=== PATIENT | male | born 1940 | race Caucasian/White ===

== ENCOUNTER → 2017-04-21 | Outpatient (CLI) | payer MEDICARE, OTHER ==
[~2017-04-21] MED LIST: ALAVERT10 M1 PO; ASCORBIC ACID500 M2 PO; ASPIRIN CHILDRE81 M1 PO; BENTYL20 M1 PO; BISOPROLOL 5MG T5 MG PO; BISOPROLOL FUMA10 MG PO; CIPRO 500MG TA500 MG PO; CLINORIL GENER150 MG PO; DIPHENHYDRAMINE25 M1 PO; DOXAZOSIN2 MG PO; EFFEXOR XR 75MG75 MG PO; EFFEXOR XR150 MG PO; FINASTERIDE5 MG PO; FISH OIL1000 MG PO; FLOMAX 0.4MG C0.4 MG PO; GABAPENTIN300 MG PO; Glucosamine500 MG PO; HYDROCODONE-APA1 TA1 PO; LEVOTHYROXIN0.112 M1 PO; LEVOTHYROXIN0.112 MG PO; LOSARTAN POTASS50 MG PO; METOLAZONE 2.52.5 MG PO; NEXIUM40 MG PO; NORCO1 TAB PO; OMEPRAZOLE40 MG PO; SIMVASTATIN40 MG PO; SIMVASTATIN80 MG PO; TYLENOL W/CODEI1 TA2 PO; VISTARIL25 M1 PO; VYTORIN 10 MG-41 TAB PO; ZETIA10 MG PO; ZOFRAN ODT4 MG PO
[2017-04-21 10:06] LABS: BUN 9 mg/dL (7-18)
[2017-04-21 10:08] LABS: GFR (ESTIMATED) 73 ML/MIN (>60)
== END ==
LOC: LAB 09:31
PROVIDERS: Internal Medicine Cardiovascular Disease
DX: I10 Essential (primary) hypertension (principal); I25.10 Atherosclerotic heart disease of native coronary artery without angina pectoris; E78.5 Hyperlipidemia, unspecified

== ENCOUNTER → 2017-05-06 | Outpatient (CLI) | payer MEDICARE, OTHER ==
[2017-05-06 14:02] LABS: BUN 7 mg/dL (7-18)
[2017-05-06 14:04] LABS: GFR (ESTIMATED) 65 ML/MIN (>60)
== END ==
LOC: LAB 13:34
PROVIDERS: Internal Medicine Cardiovascular Disease
DX: I25.10 Atherosclerotic heart disease of native coronary artery without angina pectoris (principal); R06.00 Dyspnea, unspecified; K21.9 Gastro-esophageal reflux disease without esophagitis; M54.5 Low back pain; G47.33 Obstructive sleep apnea (adult) (pediatric); R60.9 Edema, unspecified

== ENCOUNTER 2017-06-09 11:01 | Day surgery (SDC) | payer MEDICARE, OTHER ==
[~2017-06-09] VITALS: Ht 172.7 cm; Wt 104.3 kg
--- NOTE | 2017-06-09 13:06 | Operative Note ---
Upper GI Endoscopy Procedure date: 06/09/17 Date of : 40 Procedure:Upper GI Endoscopy Esophagogastroduodenoscopy with cold biopsies Indications: Mr. 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 This pathology was confirmed through [facility] pathologist. He underwent endoscopic mucosal resection by me on February 14, 2016 which was confirmed pathologically to be T1 lesion. The patient subsequently underwent radiofrequency ablation of the remaining Maloney's on May 01, 2016. He returns today for his 1 year surveillance endoscopy. He does have some reflux in the evenings which is mild. Performing Provider: Dipti Trejo MD Referring Provider: Francisco Schuler M.D. Sedation: MAC sedation Procedure: Prior to the procedure, a history and physical exam was performed, and patients medications and allergies were reviewed. The risks and benefits of the procedure and the sedation options and risks were discussed with the patient. All questions were answered and informed consent was obtained. The patient was brought to the procedure room. Patient identification and proposed procedure were verified by the physician and the nurse. The patient was placed in a left lateral decubitus position and the scope was passed under direct vision. Throughout the procedure, the patient's blood pressure, pulse, and oxygen saturations were monitored continuously. The endoscope was introduced through the mouth, and advanced to the second part of duodenum. The upper GI endoscopy was accomplished without difficulty. The patient tolerated the procedure well. Findings: The scope was passed directly into the upper esophagus and advanced to the third portion of the duodenum. The post bulbar duodenum and duodenal bulb were normal with normal mucosa and conniventes. The scope was withdrawn through a normal duodenal bulb and pylorus into the stomach. There was very mild linear reactive antritis. The remainder of the antrum, body and fundus of the stomach were grossly normal. Upon retroflexion there was a small 1-2 cm hiatal hernia. The scope was withdrawn into the esophagus. There was no evidence of reflux esophagitis or Maloney's. There was at least 1 short tongue of salmon-colored mucosa that was biopsied to rule out Maloney's/intestinal metaplasia. Narrowband imaging was utilized and did not show any evidence of dysplasia. The remainder of the esophageal mucosa was normal. Immediate complications: None EBL (ml): 0 Impression: 1. Normal post-EMR/radiofrequency ablation of prior short segment Maloney's with high-grade dysplasiasurveillance biopsies obtained to rule out any remaining intestinal metaplasia/Maloney's 2. Nonerosive gastroesophageal reflux disease with small 1-2 cm hiatal hernia Recommendations: I will follow-up the biopsies. If there is any evidence of intestinal metaplasia , I would continue annual or biannual surveillance based upon his former history of Maloney's with high-grade dysplasia. I would continue PPI therapy on a long- term daily maintenance basis. at [id number]
[2017-06-09 14:41] VITALS: BP 124/81
== END 2017-06-09 13:45 | disposition home or self-care (01) ==
LOC: SDC 11:01
PROVIDERS: Internal Medicine Gastroenterology
PROC: 0DJ08ZZ Inspection of Upper Intestinal Tract, Via Natural or Artificial Opening Endoscopic (ICD-10-PCS; principal; 2017-06-09 12:00)
DX: K22.711 Barrett's esophagus with high grade dysplasia (principal); K44.9 Diaphragmatic hernia without obstruction or gangrene

== ENCOUNTER 2017-09-05 11:51 | Day surgery (SDC) | payer MEDICARE, OTHER ==
[~2017-09-05] VITALS: Ht 172.7 cm; Wt 103.4 kg
[~2017-09-05 11:51] MED LIST changes: +GABAPENTIN600 MG PO; +TRAMADOL50 M1 PO
[2017-09-05 12:06] VITALS: BP 141/79
[2017-09-05 12:20] VITALS: BP 141/79
[2017-09-05 12:23] VITALS: BP 141/79
--- NOTE | 2017-09-05 12:28 | Procedure Note ---
Procedure detail Date of procedure: 09/05/17 Anesthesiologist: Sohail Moseley M.D. Complications: None Pre-procedure diagnosis: Bilateral shoulder pain with degenerative joint disease Post-procedure diagnosis: Same Indications for procedure: This patient is a pleasant 77-year-old white male who we are treating for low back pain and lumbar radiculopathy symptoms. He also has degenerative joint disease of both shoulders. We'll do bilateral shoulder injections today to see if this will help with some his pain symptoms. Procedure detail: Bilateral shoulder injections/suprascapular nerve blocks Informed consent was obtained and the risk and benefits of the procedure was when patient. The patient was taken to the procedure room. Both shoulders were prepped using ChloraPrep. A 25-gauge needle was used to inject suprascapular nerves and the RIGHT shoulder joint. We injected 10 mL bupivacaine 0.25 percent and 40 mg into the shoulder. The patient tolerated the procedure well without complications. Plan and disposition: We will follow-up with him in 2 weeks to reevaluate his symptoms. at [id number]
[2017-09-05 12:29] VITALS: BP 141/79
== END 2017-09-05 12:30 | disposition home or self-care (01) ==
LOC: PM 11:51
PROC: 3E0T3BZ Introduction of Anesthetic Agent into Peripheral Nerves and Plexi, Percutaneous Approach (ICD-10-PCS; principal; 2017-09-05)
PROC: 3E0T33Z Introduction of Anti-inflammatory into Peripheral Nerves and Plexi, Percutaneous Approach (ICD-10-PCS; 2017-09-05)
DX: M19.012 Primary osteoarthritis, left shoulder (principal); M19.011 Primary osteoarthritis, right shoulder
CPT/HCPCS: J1030